=== PATIENT | female | born 2000 | race Caucasian/White ===

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

== ENCOUNTER 2022-06-01 11:58 | Emergency (ER) | payer MEDICAID, SELFPAY ==
[2022-06-01 12:00] VITALS: BP 165/90; PULSE 83; RESP 14; TEMP 36.8; O2SAT 99; BMI 43.8
--- NOTE | 2022-06-01 12:24 | RAD_ITS ---
EXAM: XR LUMBOSACRAL SPINE, 2 OR 3 VIEWS CLINICAL INDICATION: trauma, pain TECHNIQUE: Frontal and lateral views of the lumbar spine and sacrum. This report was created using [employer] report generation technology. COMPARISON: None. FINDINGS: VERTEBRAE: Normal. Preserved vertebral body height. No fracture. No spondylolisthesis. Preservation of the normal lumbar lordosis. No significant facet arthropathy. DISC SPACES: No acute findings. Disc spaces are maintained. RAD/Lumbar Spine 2 or 3 Views IMPRESSION: No evidence of lumbar spinal fracture or spondylolisthesis. Electronically Signed: Abdulaziz Hanson MD at 13:25 EDT ,
--- NOTE | 2022-06-01 12:24 | RAD_ITS ---
EXAM: XR CERVICAL SPINE, 2 OR 3 VIEWS CLINICAL INDICATION: trauma, pain TECHNIQUE: Frontal and lateral views of the cervical spine. This report was created using [employer] report generation technology. COMPARISON: XR Cervical Spine dated 03/01/2017 FINDINGS: VERTEBRAE: Loss of the normal cervical lordosis which may be due to muscle spasm or head positioning. Preserved vertebral body height. No acute fracture. No spondylolisthesis. No significant facet arthropathy. DISC SPACES: Normal. Disc spaces are maintained. SOFT TISSUES: Normal. No prevertebral soft tissue widening. LUNG APICES: Clear. MEDIASTINUM: Central airways are unremarkable. No mediastinal or hilar mass. RAD/Cerv Spine 2 or 3 Views IMPRESSION: No acute bone or joint abnormality. No interval change. Electronically Signed: Abdulaziz Hanson MD at 13:25 EDT ,
--- NOTE | 2022-06-01 12:24 | RAD_ITS ---
EXAM: XR THORACIC SPINE, 2 VIEWS CLINICAL INDICATION: trauma, pain TECHNIQUE: Frontal and lateral views of the thoracic spine. This report was created using [employer] report generation technology. COMPARISON: None. FINDINGS: VERTEBRAE: Mild vertebral body osteophytosis at T8-9. Preserved vertebral body height. No fracture. No spondylolisthesis. Preservation of the normal thoracic kyphosis. No significant facet arthropathy. DISC SPACES: Normal disc spaces. RAD/Thoracic Spine 3 Views IMPRESSION: Intact thoracic spine Electronically Signed: Abdulaziz Hanson MD at 13:26 EDT ,
[2022-06-01] MEDS: Ibuprofen 400 MG Tablet 800 MG PO (12:28)
--- NOTE | 2022-06-01 13:29 | EX.ED.DYSGE1 ---
HPI History of Present Illness Chief Complaint: Back Informant: patient Onset/Context/Timing Onset: Today Context: Sudden Onset Maximum Severity: Severe Associated Symptoms Associated Symptoms: none Narrative Narrative: Patient has pain from her neck down to her lower back. This started after she slipped on stairs. They were wet and she was on sandals with flat bottoms. She landed on her backside and slid down about 12 stairs. She denies any weakness, numbness, or other neurologic symptoms. Denies vomiting. Denies amnesia. Denies blood thinner use. Prior similar symptoms: No Recent Illness/Hospitalization: No PFSH PFSH Medical History Cholecystitis Hx of meningitis Migraine Other specified diseases of gallbladder Home Medications cyclobenzaprine 10 mg tablet 10 mg PO TID PRN Muscle Spasm #20 TABLETS 06/01/22 [Rx Last Taken Unknown] naproxen 500 mg tablet 500 mg PO BID PRN #20 tabs 06/01/22 [Rx Last Taken Unknown] Allergy/AdvReac Type Severity Reaction Status Date / Time No Known Allergies Allergy Verified 06/01/22 12:00 Family History Other Diabetes Hypertension Surgical History Hx of tympanostomy tubes Social History Smoking Status: Current every day smoker tobacco type: cigarettes and e-cigarettes alcohol intake: never ROS ROS ED Constitutional Constitutional ED: Denies chills Eyes Eyes: Denies blurry vision ENT ENT ED: Denies ear pain Cardiovascular Cardiovascular: Denies chest pain Respiratory/Chest Respiratory/Chest: Denies cough Gastrointestinal Gastrointestinal: Denies abdominal pain Genitourinary Genitourinary ED: Denies dysuria Musculoskeletal Musculoskeletal: Reports back pain and neck pain Integumentary Denies abscess Neurologic Neurologic: Denies headache(s) Psychiatric Psychiatric: Denies anxiety Endocrine Endocrinology: Denies cold intolerance Hematologic/Lymphatic Hematologic/Lymphatic: Denies easy bruising Allergic/Immunologic Allergic/Immunologic ED: Denies mouth swelling EXAM Physical Exam Const Vital Signs: 06/01/22 12:00 Temperature 98.2 F Temperature Source Temporal Pulse Rate 83 Respiratory Rate 14 Blood Pressure 165/90 H Blood Pressure Mean 115 Pulse Ox 99 Oxygen Delivery Method Room Air Positive well nourished and well developed General Appearance ED: well developed HEENT Reports moist mucous membranes Negative for trauma or tenderness Eyes PERRL and EOMs intact bilaterally Neck no lymphadenopathy, supple and no JVD Resp normal respiratory effort and clear to auscultation bilaterally Cardio regular rate and regular rhythm Back/Spine Back/Spine Narrative: Diffuse upper thoracic and lumbar tenderness to palpation Neuro oriented x3, CN's II-XII intact bilaterally and no sensory deficits noted Sensorium / Orientation: alert Motor Exam: strength 5/5 throughout Psych mental status grossly normal Skin no rashes or lesions noted MDM MDM MDM Narrative Medical decision making narrative: Patient had a mechanical fall. She has diffuse back pain. I suspect a fracture is unlikely. Did obtain x-rays which were reassuring. X-rays of the cervical spine, thoracic spine, and lumbar spine were reviewed by the radiologist and myself and showed no acute abnormalities. Patient will be treated with pain medicine and muscle relaxers. Follow-up with primary care. Discharge. Impression #1 thoracic back pain Impression #2 lumbar back pain Radiography Diagnostic Testing: Clinical Impression(s) from Imaging Studies Cervical Spine X-Ray 06/01/22 12:24 IMPRESSION: No acute bone or joint abnormality. No interval change. Electronically Signed: Abdulaziz Hanson MD at 13:25 EDT , Lumbar Spine X-Ray 06/01/22 12:24 IMPRESSION: No evidence of lumbar spinal fracture or spondylolisthesis. Electronically Signed: Abdulaziz Hanson MD at 13:25 EDT , Thoracic Spine X-Ray 06/01/22 12:24 IMPRESSION: Intact thoracic spine Electronically Signed: Abdulaziz Hanson MD at 13:26 EDT , Discharge Plan Triage Chief Complaint: Back ED Provider: Donnie Delarosa Dx/Rx/DC Orders Instructions: ED Back Contusion Prescriptions: New naproxen 500 mg tablet 500 mg PO BID PRN Qty: 20 0RF cyclobenzaprine 10 mg tablet 10 mg PO TID PRN (Reason: Muscle Spasm) Qty: 20 0RF Primary Care Provider: Care Physician,No Primary Referrals: Roseline Morgan MD [Med Staff - Valet Manager] - Disposition Disposition: Home, Self Care
[2022-06-01 13:31] VITALS: BP 145/90; PULSE 75; RESP 16; O2SAT 99
== END 2022-06-01 13:37 | disposition home or self-care (01) ==
PROVIDERS: Emergency Provider Emergency Medicine; Visit Provider Emergency Medicine
DX: S30.0XXA Contusion of lower back and pelvis, initial encounter (principal); W10.9XXA Fall (on) (from) unspecified stairs and steps, initial encounter; F17.210 Nicotine dependence, cigarettes, uncomplicated
CPT/HCPCS: 72040; 72072; 72100; 99283

== ENCOUNTER → 2023-02-25 | Outpatient (CLI) | payer MEDICAID, SELFPAY ==
[2023-02-25 16:25] LABS: Free T3 2.9 pg/mL (2.18-3.98); T4 Free Direct 0.83 ng/dL (0.76-1.46); Thyroid Stim Hormone (TSH) 4.04 uIU/mL (0.358-3.74)
[2023-02-27 15:08] LABS: Thyroglobulin Antibody 9.8 IU/mL (0.0-0.9); Thyroid Peroxidase AB 253 IU/mL (0-34)
== END | disposition home or self-care (01) ==
LOC: MFPLAB 11:33
PROVIDERS: Visit Provider Family Medicine
DX: R79.89 Other specified abnormal findings of blood chemistry (principal)
CPT/HCPCS: 36415; 84439; 84443; 84481; 86376; 86800

== ENCOUNTER 2023-04-17 22:30 | Emergency (ER) | payer MEDICAID, SELFPAY ==
--- NOTE | 2023-04-17 | RAD_ITS ---
EXAM: XR LEFT TOES, 2 OR MORE VIEWS CLINICAL INDICATION: toe pain TECHNIQUE: Frontal, lateral and oblique views of the toes of the left foot. COMPARISON: No relevant prior studies available. FINDINGS: BONES/JOINTS: Unremarkable. No acute fracture. No dislocation. SOFT TISSUES: Unremarkable. No radiopaque foreign body. RAD/Toe(s) Min 2 Views IMPRESSION: Negative left toe x-rays. Electronically Signed: Enrique Flowers MD at 0:21 EDT ,
[2023-04-17 22:31] VITALS: BP 164/101; PULSE 102; RESP 18; TEMP 36.1; O2SAT 100; BMI 46.5
--- NOTE | 2023-04-18 00:15 | EX.ED.DYSGE1 ---
HPI History of Present Illness Chief Complaint: Lower Extremity Injury [facility] Medical History Cholecystitis Hx of meningitis Migraine Other specified diseases of gallbladder Home Medications levothyroxine 50 mcg tablet 50 mcg PO DAILY 04/17/23 [History Last Taken Unknown] Allergy/AdvReac Type Severity Reaction Status Date / Time prednisone Allergy Mild Hives Verified 04/17/23 22:31 Family History Other Diabetes Hypertension Surgical History Hx of tympanostomy tubes Social History Smoking Status: Current every day smoker tobacco type: cigarettes and e-cigarettes alcohol intake: never EXAM Physical Exam Const Vital Signs: 04/17/23 22:31 Temperature 97 F L Temperature Source Temporal Pulse Rate 102 H Respiratory Rate 18 Blood Pressure 164/101 H Blood Pressure Mean 122 Pulse Ox 100 MDM MDM MDM Narrative Medical decision making narrative: HISTORY OF PRESENT ILLNESS: 23-year-old female here with left great toe pain. States she injured her toe prior to arrival. REVIEW OF SYSTEMS: Pertinent positives: Toe pain Pertinent negatives: Numbness, tingling loss of sensation PHYSICAL EXAM: Nursing triage notes reviewed, Vital signs reviewed Constitutional: please see mdm Extremities: No edema Neuro: Intact sensation L1-S1 dermatomal distributions. Intact 5/5 strength in hip flexion (T12-L3). Knee extension (L2-L4). Ankle dorsiflexion (L4-L5). Ankle plantar flexion (S1). Great toe extension (L5). 2+ patellar and Achilles DTRs. Skin: Small abrasion noted to the lateral surface of the left toe. Redness over the toe but no warmth no white-yellow discharge is clear serosanguineous fluid draining from the left toe. No lacerations noted. MEDICAL DECISION MAKING: Chief Complaint: Toe pain External records reviewed: No recent advanced imaging of the involved extremity Factors affecting care:. Hypothyroid ALL IMAGES (IF OBTAINED) HAVE BEEN PERSONALLY REVIEWED AND INTERPRETED BY MYSELF. MDM Narrative: Patient was hemodynamically stable, afebrile, nontoxic-appearing. I considered the following differential diagnosis: Toe fracture, dislocation, toe contusion I obtained an x-ray. X-ray was interpreted myself. X-ray showed no evidence of obvious fracture dislocation. Patient is likely suffering from a toe contusion and as such is appropriate discharge home with ibuprofen and Tylenol instructions, RICE instructions, PCP follow-up instructions. The patient and/or family, caregivers express understanding. The patient and/or family, caregivers agrees with the plan. Shared decision making: I will have a discussion with the patient and or visitors regarding risk/benefits of further testing or admission. They will be made aware of of the risk/benefits inherent in this decision they will be given the opportunity to voice understanding. Total critical care time today provided was at least 0 minutes. This excludes separately billable procedures. Critical care time (if documented) is secondary to the patient having high probability of clinically significant/life threatening deterioration in the patient's condition which required my urgent intervention. Radiography Chest X-Ray - ED: Read by ED Physician Diagnostic Testing: Clinical Impression(s) from Imaging Studies Toe X-Ray 04/17/23 00:00 IMPRESSION: Negative left toe x-rays. Electronically Signed: Enrique Flowers MD at 0:21 EDT , X-ray of the left toe shows no evidence of fracture dislocation Discharge Plan Triage Chief Complaint: Lower Extremity Injury ED Provider: Arnaldo Haq Dx/Rx/DC Orders Clinical Impression: Contusion of toe Instructions: Bone Contusion Prescriptions: No Action levothyroxine 50 mcg tablet 50 mcg PO DAILY Patient Comments: take 1 tablet by mouth once daily Primary Care Provider: Marli Avina Referrals: Care Physician,No Primary [Non-Staff] - Activity Restrictions/Additional Instructions: Thank you for trusting us with your care today! Please take Tylenol (2 pills, 650 mg), ibuprofen (2 pills, 400 mg) every 6 hours as needed for pain and fever control. Please return to the emergency department if your symptoms change or worsen. Please return if you notice increasing pain, redness, swelling, white-yellow discharge in 3 to 5 days from today. Please use elevation, compression, ice to relieve symptoms as well. Please follow with your primary care physician for further outpatient evaluation and management. Disposition Disposition: Home, Self Care Discharge Date/Time: 04/18/23 01:27
[2023-04-18] MEDS: Diphth,Pertuss(Acell),Tet Vac 0.5 ML Vial IM (01:18)
== END 2023-04-18 01:27 | disposition home or self-care (01) ==
PROVIDERS: Emergency Provider Emergency Medicine; PCP Family Medicine; Visit Provider Emergency Medicine
DX: S90.112A Contusion of left great toe without damage to nail, initial encounter (principal); E03.9 Hypothyroidism, unspecified; F17.210 Nicotine dependence, cigarettes, uncomplicated; F17.290 Nicotine dependence, other tobacco product, uncomplicated; Z79.899 Other long term (current) drug therapy; X58.XXXA Exposure to other specified factors, initial encounter; Z23 Encounter for immunization
CPT/HCPCS: 73660; 90471; 90715; 99282

== ENCOUNTER 2023-09-23 22:49 | Emergency (ER) | payer OTHER, SELFPAY ==
--- NOTE | 2023-09-23 00:07 | RAD_ITS ---
INDICATION: pain EXAMINATION/TECHNIQUE: X-RAY - LEFT XR Wrist Min 3 Views 3 VIEWS COMPARISON: None. FINDINGS: SOFT TISSUES: No soft tissue swelling or gas. No radiopaque foreign body. BONES/JOINTS: No acute fracture. Joint spaces anatomically aligned. RAD/Wrist min 3 Views IMPRESSION: No acute bony injury. Electronically Signed: Gume Vang MD at 0:30 EST ,
[2023-09-23 22:50] VITALS: BP 183/93; PULSE 104; RESP 20; TEMP 36.8; O2SAT 100; BMI 50.1
--- OUTSIDE RECORDS SUMMARY | 2023-09-23 23:22 | XMS RPT_ITS | CCD ---
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 reduced with medications. - Follow-up with your PCP in 3-5 days if symptoms have not improved or sooner if symptoms worsen - Discussed red flags and need for immediate medical evaluation if any occur. - Discussed supportive care treatment with fluids, rest and analgesia. - Discussed expected course of illness Marilia Membreno APRN.[facility] 02-24-2023 Instructions Mariliaannette Membreno APRN.CNP - 02/24/2023 11:14 AM EDT ASSESSMENT/PLAN: 1. Torticollis - ICD9: 723.5, ICD10: M43.6 - CYCLOBENZAPRINE 10 MG TABLET - IBUPROFEN 600 MG TABLET - gentle range of motion exercises to neck once pain is reduced with medications. - Follow-up with your PCP in 3-5 days if symptoms have not improved or sooner if symptoms worsen - Discussed red flags and need for immediate medical evaluation if any occur. - Discussed supportive care treatment with fluids, rest and analgesia. - Discussed expected course of illness Marilia Membreno APRN.ALISA documented in this encounter [facility] 02-24-2023 History of Present illness Narrative Formatting of this note is different fro m the original. Images from the original note were not included. Subjective Neck Pain Pertinent negatives include no fever or headaches. Dre Childress is a 23 year old female who presents with right neck and shoulder pain for the past 3 hours. She woke up with a sore neck and pain radiates to her shoulder. She rates her pain 7-8/10. Has limited range of motion of her neck due to stiffness. Denies any injury. She did not take any medication for pain today, it totally slipped my mind . Review of Systems Constitutional: Negative for chills and fever. HENT: Negative for congestion, ear pain and sore throat. Respiratory: Negative for cough. Cardiovascular: Negative. Musculoskeletal: Positive for neck pain. Negative for back pain, falls and joint pain. Skin: Negative for itching and rash. Neurological: Negative for dizziness and headaches. BP 142/82 Pulse 94 Temp 37.3 C (99.1 F) Resp 16 Wt 122 kg (269 lb) LMP 08/23/2018 SpO2 98% PAST MEDICAL HISTORY Diagnosis Date Eczema NEGATIVE MEDICAL HISTORY Normal color vision PAST SURGICAL HISTORY Procedure Laterality Date MYRINGOTOMY ASPIR&/EUSTACHIAN TUBE NFLTJ ANES 2009 Myringotomy/tubes x 2 ALLERGIES Cats and Prednisone MEDICATIONS fluticasone (FLONASE) 50 mcg/actuation nasal spray Use 2 Sprays in each nostril once daily. Rinse mouth after use. Ferrous Sulfate (SLOW FE) 142 mg (45 mg iron) TbER Take 1 tablet by mouth once daily. (Patient not taking: Reported on 01/01/2023) medroxyPROGESTERone (PROVERA) 10 mg tablet Take one tab once a day for 10 days if no menstrual period in 3 months (Patient not taking: Reported on 01/01/2023) multivitamin tablet Take 1 tablet by mouth once daily. (Patient not taking: Reported on 01/01/2023) chlorhexidine (HIBICLENS) 4 % external liquid Apply 1 application to affected area once daily as needed (use at affected area). (Patient not taking: Reported on 01/01/2023) FAMILY HISTORY Problem Relation Age of Onset Hypertension Mother other (apnea) Mother Hypertension Father Hypertension Maternal Grandmother Diabetes Maternal Grandfather Hypertension Maternal Grandfather other (apnea) Maternal Grandfather Diabetes Paternal Grandfather Hypertension Paternal Grandfather Cancer Paternal Grandfather GGF - bone cancer other (Other) Paternal Grandfather GGF - Parkinsons Social History Tobacco Use Smoking status: Never Passive exposure: Yes Smokeless tobacco: Never Tobacco comments: Father smokes - sees him every other weekend Substance Use Topics Alcohol use: No Drug use: No Objective Physical Exam Vitals and nursing note reviewed. Constitutional: General: She is not in acute distress. Appearance: Normal appearance. She is obese. She is not ill-appearing. HENT: Right Ear: Tympanic membrane, ear canal and external ear normal. Left Ear: Tympanic membrane, ear canal and external ear normal. Nose: Nose normal. Mouth/Throat: Mouth: Mucous membranes are moist. Pharynx: Uvula midline. No oropharyngeal exudate or posterior oropharyngeal erythema. Neck: Cardiovascular: Rate and Rhythm: Normal rate. Pulmonary: Effort: Pulmonary effort is normal. Musculoskeletal: Cervical back: Neck supple. No erythema, signs of trauma or crepitus. Pain with movement and muscular tenderness present. No spinous process tenderness. Decreased range of motion. Lymphadenopathy: Cervical: No cervical adenopathy. Skin: General: Skin is warm and dry. Findings: No erythema or rash. Neurological: Mental Status: She is alert. ASSESSMENT/PLAN: 1. Torticollis - ICD9: 723.5, ICD10: M43.6 - CYCLOBENZAPRINE 10 MG TABLET - IBUPROFEN 600 MG TABLET - gentle range of motion exercises to neck once pain is reduced with medications. - Follow-up with your PCP in 3-5 days if symptoms have not improved or sooner if symptoms worsen - Discussed red flags and need for immediate medical evaluation if any occur. - Discussed supportive care treatment with fluids, rest and analgesia. - Discussed expected course of illness Marilia Membreno APRN.CNP documented in this encounter [facility] 01-27-2023 Note Patient Outreach (RE FPHY) DRE CHILDRESS ([id number]) 2 F Date Time Provider Department 01/27/23 NO PCP (HISTORCAL) REFPHY During your visit today, we recorded the following information about you: Nava Reyes 01/27/2023 9:58 AM Signed POPULATION HEALTH NAVIGATION OUTREACH Action/ RP Outreach: LVM for Patient to call back and schedule EVELYNE Consult for Acute left ankle pain [M25.572]. [phone]. Any agent can assist. Patient Identified by Name and : YES, via MyChart Outreach Outcome/Action Unable to reach patient: Left message Did you use a PCP flex slot to schedule this appointment? No Reason for Outreach Care Gap or Scheduling/Wellness visits P[facility]: [facility] [place] [facility] / Plan: [facility] MEDICAID / Product Type: Medicaid / Care Gap Reviewed:: ORQ Reminder: Reminder note to check Health Maintenance for items below Health Maintenance items due: MENINGOCOCCAL B: Consider based on risk(1 of 2 - Risk Bexsero 2-dose series) Never done GC (GONORRHEA) SCREENING (18-24) Never done HEPATITIS C SCREENING Never done HIV SCREENING Never done CHLAMYDIA SCREENING (18-24) Never done COVID-19 VACCINE(3 - Booster for Pfizer series) due on 05/20/2021 PAP TESTING Never done DEPRESSION ASSESSMENT Never done DTAP,TDAP,TD(7 - Td or Tdap) due on 10/28/2022 Navigation Signature: Nava Reyes January 27, 2023 9:57 AM Allergies As of Date: 01/27/2023 Noted Allergy Reaction CATS 10/28/2012 14 - Other: See Comments Comments: Watery eyes PREDNISONE 01/14/2023 2 - Rash 4 - Hives Date Reviewed: 01/09/2023 Reviewed by: Mabel Kenny MA - Fully Assessed Prescriptions as of 01/27/2023 - fluticasone (FLONASE) 50 mcg/actuation nasal spray Use 2 Sprays in each nostril once daily. Rinse mouth after use. - Ferrous Sulfate (SLOW FE) 142 mg (45 mg iron) TbER Take 1 tablet by mouth once daily. - medroxyPROGESTERone (PROVERA) 10 mg tablet Take one tab once a day for 10 days if no menstrual period in 3 months - multivitamin tablet Take 1 tablet by mouth once daily. - chlorhexidine (HIBICLENS) 4 % external liquid Apply 1 application to affected area once daily as needed (use at affected area). Problem List As Of Date 01/27/2023 Noted Resolved Patellar subluxation [S83.003A] 07/16/2015 03/30/2017 Obesity, Class III, BMI >= 40 (morbid obesity) *06/23/2017 Hidradenitis suppurativa [L73.2] 08/07/2017 Hyperlipidemia [E78.5] 08/07/2017 Other acne [L70.8] 08/10/2018 Irregular periods [N92.6] 08/10/2018 Elevated TSH [R79.89] 08/10/2018 Anemia [D64.9] 08/16/2018 Encounter Status:Closed by NAVA REYES on 01/27/23 [facility] 01-27-2023 Note HNO ID: [id number] Author: Nava Reyes Service: ? Author Type: ? Type: Progress Notes Filed: 01/27/2023 9:58 AM Note Text: POPULATION HEALTH NAVIGATION OUTREACH Action/MALKAI Outreach: LVM for Patient to call back and schedule EVELYNE Consult for Acute left ankle pain [M25.572]. [phone]. Any agent can assist. Patient Identified by Name and : YES, via [facility] Outreach Outcome/Action Unable to reach patient: Left message Did you use a PCP flex slot to schedule this appointment? No Reason for Outreach Care Gap or Scheduling/Wellness visits Payer: Payor: [facility] MEDICAID / Plan: [facility] MEDICAID / Product Type: Medicaid / Care Gap Reviewed:: ORQ Reminder: Reminder note to check Health Maintenance for items below Health Maintenance items due: MENINGOCOCCAL B: Consider based on risk(1 of 2 - Risk Bexsero 2-dose series) Never done GC (GONORRHEA) SCREENING (18-24) Never done HEPATITIS C SCREENING Never done HIV SCREENING Never done CHLAMYDIA SCREENING (18-24) Never done COVID-19 VACCINE(3 - Booster for Pfizer series) due on 05/20/2021 PAP TESTING Never done DEPRESSION ASSESSMENT Never done DTAP,TDAP,TD(7 - Td or Tdap) due on 10/28/2022 Navigation Signature: Nava eRyes January 27, 2023 9:57 AM [facility] 01-27-2023 History of Present illness Narrative Formatting of this note is different fro m the original. POPULATION HEALTH NAVIGATION OUTREACH Action/FYI RP Outreach: LVM for Patient to call back and schedule EVELYNE Consult for Acute left ankle pain [[id number]]. [phone]. Any agent can assist. Patient Identified by Name and : YES, via [facility] Outreach Outcome/Action Unable to reach patient: Left message Did you use a PCP flex slot to schedule this appointment? No Reason for Outreach Care Gap or Scheduling/Wellness visits Payer: Payor: [facility] MEDICAID / Plan: [employer] MEDICAID / Product Type: Medicaid / Care Gap Reviewed:: ORQ Reminder: Reminder note to check Health Maintenance for items below Health Maintenance items due: MENINGOCOCCAL B: Consider based on risk(1 of 2 - Risk Bexsero 2-dose series) Never done GC (GONORRHEA) SCREENING (18-24) Never done HEPATITIS C SCREENING Never done HIV SCREENING Never done CHLAMYDIA SCREENING (18-24) Never done COVID-19 VACCINE(3 - Booster for Pfizer series) due on 05/20/2021 PAP TESTING Never done DEPRESSION ASSESSMENT Never done DTAP,TDAP,TD(7 - Td or Tdap) due on 10/28/2022 Navigation Signature: Nava Reyes January 27, 2023 9:57 AM documented in this encounter [facility] 01-22-2023 Note HNO ID: [id number] Author: Nava Reyes Service: ? Author Type: ? Type: Progress Notes Filed: 01/22/2023 3:22 PM Note Text: POPULATION HEALTH NAVIGATION OUTREACH Action/VAUGHN RP Outreach: LVM for Patient to call back and schedule EVELYNE Consult for Acute left ankle pain [M25.572]. [phone]. Any agent can assist. Patient Identified by Name and : YES, via [facility] Outreach Outcome/Action Unable to reach patient: Left message Did you use a PCP flex slot to schedule this appointment? No Reason for Outreach Care Gap or Scheduling/Wellness visits Payer: [facility] [place] [facility] / Plan: [facility] / Product Type: Medicaid / Care Gap Reviewed:: ORQ Reminder: Reminder note to check Health Maintenance for items below Health Maintenance items due: MENINGOCOCCAL B: Consider based on risk(1 of 2 - Risk Bexsero 2-dose series) Never done GC (GONORRHEA) SCREENING (18-24) Never done HEPATITIS C SCREENING Never done HIV SCREENING Never done CHLAMYDIA SCREENING (18-24) Never done COVID-19 VACCINE(3 - Booster for Pfizer series) due on 05/20/2021 PAP TESTING Never done DEPRESSION ASSESSMENT Never done DTAP,TDAP,TD(7 - Td or Tdap) due on 10/28/2022 Navigation Signature: Nava Reyes January 22, 2023 3:21 PM [facility] 01-22-2023 Note Patient Outreach (RE FPHY) DRE CHILDRESS ([id number]) 2 F Date Time Provider Department 01/22/23 NO PCP (HISTORCAL) REFPHY During your visit today, we recorded the following information about you: Nava Reyes 01/22/2023 3:22 PM Signed POPULATION HEALTH NAVIGATION OUTREACH Action/ RP Outreach: LVM for Patient to call back and schedule EVELYNE Consult for Acute left ankle pain [M25.572]. [phone]. Any agent can assist. Patient Identified by Name and : YES, via MyChart Outreach Outcome/Action Unable to reach patient: Left message Did you use a PCP flex slot to schedule this appointment? No Reason for Outreach Care Gap or Scheduling/Wellness visits Payer: Payor: [facility] MEDICAID / Plan: [facility] / Product Type: Medicaid / Care Gap Reviewed:: ORQ Reminder: Reminder note to check Health Maintenance for items below Health Maintenance items due: MENINGOCOCCAL B: Consider based on risk(1 of 2 - Risk Bexsero 2-dose series) Never done GC (GONORRHEA) SCREENING (18-24) Never done HEPATITIS C SCREENING Never done HIV SCREENING Never done CHLAMYDIA SCREENING (18-24) Never done COVID-19 VACCINE(3 - Booster for Pfizer series) due on 05/20/2021 PAP TESTING Never done DEPRESSION ASSESSMENT Never done DTAP,TDAP,TD(7 - Td or Tdap) due on 10/28/2022 Navigation Signature: Nava Reyes January 22, 2023 3:21 PM Allergies As of Date: 01/22/2023 Noted Allergy Reaction CATS 10/28/2012 14 - Other: See Comments Comments: Watery eyes PREDNISONE 01/14/2023 2 - Rash 4 - Hives Date Reviewed: 01/09/2023 Reviewed by: Mabel Kenny MA - Fully Assessed Prescriptions as of 01/22/2023 - fluticasone (FLONASE) 50 mcg/actuation nasal spray Use 2 Sprays in each nostril once daily. Rinse mouth after use. - Ferrous Sulfate (SLOW FE) 142 mg (45 mg iron) TbER Take 1 tablet by mouth once daily. - medroxyPROGESTERone (PROVERA) 10 mg tablet Take one tab once a day for 10 days if no menstrual period in 3 months - multivitamin tablet Take 1 tablet by mouth once daily. - chlorhexidine (HIBICLENS) 4 % external liquid Apply 1 application to affected area once daily as needed (use at affected area). Problem List As Of Date 01/22/2023 Noted Resolved Patellar subluxation [S83.003A] 07/16/2015 03/30/2017 Obesity, Class III, BMI >= 40 (morbid obesity) *06/23/2017 Hidradenitis suppurativa [L73.2] 08/07/2017 Hyperlipidemia [E78.5] 08/07/2017 Other acne [L70.8] 08/10/2018 Irregular periods [N92.6] 08/10/2018 Elevated TSH [R79.89] 08/10/2018 Anemia [D64.9] 08/16/2018 Encounter Status:Closed by NAVA REYES on 01/22/23 [facility] 01-14-2023 Miscellaneous Notes Formatting of this note might be differe nt from the original. Pt was notified of the results. Pt verbalized understanding. Jade Nunez MA She can try naproxen otc for pain and follow up with podiatry if not improving. Pt was seen 01/09/23 for ankle pain & was put on prednisone 20mg. Pt reports she started having a rash & hives while taking med, hives & rash were all over her body & face. Pt stopped taking pred yest & states the rash & hives are almost gone. This med was added as an allergy in her allergy list. Pt reports her ankle is still the same as far as swelling & pain. Pt states she went to [employer] over the weekend & was walking a lot. She also hit her foot on the spigot in her bathtub & it left a bruise. Pt states she is not worried about the swelling & pain & states she has a referral to podiatry if it continues. Desiree Mobley LPN documented in this encounter [facility] 01-09-2023 Note HNO ID: [id number] Author: Nany Torres PA-C Service: ? Author Type: Physician Behavioral Modification Assistant Type: Progress Notes Filed: 01/09/2023 4:42 PM Note Text: This note was created using Webstep[employer]. Subjective Dre Childress is a 22 year old female. HPI Presents with left foot pain for 2 days. Denies any injury that she can think of. 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 Has noted some swelling. No calf pain or swelling. Pain is worsened with weightbearing. She has been trying Tylenol [id number]. Review of Systems Constitutional: Negative. HENT: Negative. Respiratory: Negative. Cardiovascular: Negative. Gastrointestinal: Negative. Musculoskeletal: Left foot and ankle pain All other systems reviewed and are negative. PAST MEDICAL HISTORY Diagnosis Date Eczema NEGATIVE MEDICAL HISTORY Normal color vision Current Outpatient Medications Medication Sig Dispense Refill fluticasone (FLONASE) 50 mcg/actuation nasal spray Use 2 Sprays in each nostril once daily. Rinse mouth after use. 9.9 mL 0 predniSONE (DELTASONE) 20 mg tablet Take 2 tablets by mouth once daily for 5 days. 10 tablet 0 Ferrous Sulfate (SLOW FE) 142 mg (45 mg iron) TbER Take 1 tablet by mouth once daily. (Patient not taking: Reported on 01/01/2023) 31 tablet 3 medroxyPROGESTERone (PROVERA) 10 mg tablet Take one tab once a day for 10 days if no menstrual period in 3 months (Patient not taking: Reported on 01/01/2023) 10 tablet 3 multivitamin tablet Take 1 tablet by mouth once daily. (Patient not taking: Reported on 01/01/2023) chlorhexidine (HIBICLENS) 4 % external liquid Apply 1 application to affected area once daily as needed (use at affected area). (Patient not taking: Reported on 01/01/2023) 473 mL 1 No current facility-administered medications for this visit. PAST SURGICAL HISTORY Procedure Laterality Date MYRINGOTOMY ASPIRAND/EUSTACHIAN TUBE NFLTJ ANES 2009 Myringotomy/tubes x 2 FAMILY HISTORY Problem Relation Age of Onset Hypertension Mother other (apnea) Mother Hypertension Father Hypertension Maternal Grandmother Diabetes Maternal Grandfather Hypertension Maternal Grandfather other (apnea) Maternal Grandfather Diabetes Paternal Grandfather Hypertension Paternal Grandfather Cancer Paternal Grandfather GGF - bone cancer other (Other) Paternal Grandfather GGF - Parkinsons Social History Tobacco Use Smoking status: Never Passive exposure: Yes Smokeless tobacco: Never Tobacco comments: Father smokes - sees him every other weekend Substance Use Topics Alcohol use: No Drug use: No Objective BP 130/80 Pulse 78 Temp 36.7 ?C (98 ?F) Resp 18 Wt 117.5 kg (259 lb) LMP 08/23/2018 SpO2 97% Physical Exam Vitals reviewed. Constitutional: Appearance: Normal appearance. HENT: Head: Normocephalic and atraumatic. Musculoskeletal: Comments: Exam of the left ankle reveals mild swelling to the lateral malleolus and anterior ankle area. She is tender on palpation here. Some pain with dorsiflexion and plantarflexion. No tenderness of the metatarsals of the foot. No medial malleoli or tenderness. Pedal pulses 2+. No erythema or warmth. Skin: General: Skin is warm and dry. Neurological: Mental Status: She is alert. Assessment and Plan ASSESSMENT/PLAN: 1. Acute left ankle pain - ICD9: 719.47, ICD10: M25.572 X-ray showed no acute findings. Likely tendinitis or overuse injury. Recommended rest, ice, Tylenol. Patient preferred to try prednisone rather than Aleve. Will trial 5-day course. Mervin wrap applied here. Follow-up with podiatry if not improving. - XR FOOT GENERAL 3V AP/LAT/OBL LEFT - XR ANKLE GENERAL 3V AP/LAT/OBL LEFT Nany Torres PA-C [facility] 01-09-2023 Note HNO ID: [id number] Author: Neda Lopes RT(R) Service: Nuclear Medicine Author Type: Technologist Type: Progress Notes Filed: 01/09/2023 3:05 PM Note Text: Radiology Service Progress Note PATIENT NAME: Dre Childress DATE OF SERVICE: January 09, 2023 TIME: 2:52 PM PATIENT IDENTITY VERIFICATION COMPLETED USING TWO (2) IDENTIFIERS: Name and Date of confirmed by patient verbally. FALL SCREENING: Has the patient had 2 falls in the last year or 1 fall with injury or currently using an Ambulatory Assistive Device (Walker, Cane, Wheelchair, Crutches, etc.)? No PATIENT GENDER DATA: Female. status: : No status: NO. PATIENT RELEVANT IMPLANT DATA REVIEWED: Not Applicable RADIOLOGY DEPARTMENT: General X-ray: Exam(s) Completed: Lower Extremity X-Ray(s): Ankle, Left and Wt. Bearing and Foot, Left and Wt. Bearing PERIPHERAL IV DATA: Not applicable SIGNED BY: RT Maida(R) January 09, 2023 2:52 PM [facility] 01-09-2023 History of Present illness Narrative Formatting of this note is different fro m the original. This note was created using [employer]. Subjective Dre Childress is a 22 year old female. HPI Presents with left foot pain for 2 days. Denies any injury that she can think of. 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 Has noted some swelling. No calf pain or swelling. Pain is worsened with weightbearing. She has been trying Tylenol [id number]. Review of Systems Constitutional: Negative. HENT: Negative. Respiratory: Negative. Cardiovascular: Negative. Gastrointestinal: Negative. Musculoskeletal: Left foot and ankle pain All other systems reviewed and are negative. PAST MEDICAL HISTORY Diagnosis Date Eczema NEGATIVE MEDICAL HISTORY Normal color vision Current Outpatient Medications Medication Sig Dispense Refill fluticasone (FLONASE) 50 mcg/actuation nasal spray Use 2 Sprays in each nostril once daily. Rinse mouth after use. 9.9 mL 0 predniSONE (DELTASONE) 20 mg tablet Take 2 tablets by mouth once daily for 5 days. 10 tablet 0 Ferrous Sulfate (SLOW FE) 142 mg (45 mg iron) TbER Take 1 tablet by mouth once daily. (Patient not taking: Reported on 01/01/2023) 31 tablet 3 medroxyPROGESTERone (PROVERA) 10 mg tablet Take one tab once a day for 10 days if no menstrual period in 3 months (Patient not taking: Reported on 01/01/2023) 10 tablet 3 multivitamin tablet Take 1 tablet by mouth once daily. (Patient not taking: Reported on 01/01/2023) chlorhexidine (HIBICLENS) 4 % external liquid Apply 1 application to affected area once daily as needed (use at affected area). (Patient not taking: Reported on 01/01/2023) 473 mL 1 No current facility-administered medications for this visit. PAST SURGICAL HISTORY Procedure Laterality Date MYRINGOTOMY ASPIR&/EUSTACHIAN TUBE NFLTJ ANES 2009 Myringotomy/tubes x 2 FAMILY HISTORY Problem Relation Age of Onset Hypertension Mother other (apnea) Mother Hypertension Father Hypertension Maternal Grandmother Diabetes Maternal Grandfather Hypertension Maternal Grandfather other (apnea) Maternal Grandfather Diabetes Paternal Grandfather Hypertension Paternal Grandfather Cancer Paternal Grandfather GGF - bone cancer other (Other) Paternal Grandfather GGF - Parkinsons Social History Tobacco Use Smoking status: Never Passive exposure: Yes Smokeless tobacco: Never Tobacco comments: Father smokes - sees him every other weekend Substance Use Topics Alcohol use: No Drug use: No Objective BP 130/80 Pulse 78 Temp 36.7 C (98 F) Resp 18 Wt 117.5 kg (259 lb) LMP 08/23/2018 SpO2 97% Physical Exam Vitals reviewed. Constitutional: Appearance: Normal appearance. HENT: Head: Normocephalic and atraumatic. Musculoskeletal: Comments: Exam of the left ankle reveals mild swelling to the lateral malleolus and anterior ankle area. She is tender on palpation here. Some pain with dorsiflexion and plantarflexion. No tenderness of the metatarsals of the foot. No medial malleoli or tenderness. Pedal pulses 2+. No erythema or warmth. Skin: General: Skin is warm and dry. Neurological: Mental Status: She is alert. Assessment and Plan ASSESSMENT/PLAN: 1. Acute left ankle pain - ICD9: 719.47, ICD10: M25.572 X-ray showed no acute findings. Likely tendinitis or overuse injury. Recommended rest, ice, Tylenol. Patient preferred to try prednisone rather than Aleve. Will trial 5-day course. Mervin wrap applied here. Follow-up with podiatry if not improving. - XR FOOT GENERAL 3V AP/LAT/OBL LEFT - XR ANKLE GENERAL 3V AP/LAT/OBL LEFT Nany Torres PA-C documented in this encounter [facility] 01-09-2023 Miscellaneous Notes Formatting of this note might be differe nt from the original. I called and discussed ankle and foot x-rays with patient. documented in this encounter [facility] 01-02-2023 Miscellaneous Notes Formatting of this note might be differe nt from the original. Patient returned call and went over results, notes from express care provider with understanding. Phone call placed brief message to contact a nurse to review results. Radha Garvey LPN Please notify of negative covid test. Continue comfort measures for symptoms as you would for a cold. Any worsening symptoms follow up with PCP or ER. Mary Ordoñez APRN.ALISA documented in this encounter [facility] 01-01-2023 Note HNO ID: [id number] Author: Cheyenne Zhou APRN.ALISA Service: ? Author Type: Nurse Practitioner Type: Progress Notes Filed: 01/01/2023 6:55 PM Note Text: Subjective HPI Dre presents today with 3 days hx of sore throat and head congestion, she states several family members also feeling similar. She is eating and drinking, she states her right ear feels strange . She has not had a fever. She is not using any otc meds at this time Review of Systems HENT: Positive for congestion, ear pain and sore throat. Objective Physical Exam Vitals and nursing note reviewed. Constitutional: Appearance: Normal appearance. HENT: Head: Normocephalic. Right Ear: Tympanic membrane, ear canal and external ear normal. Left Ear: Tympanic membrane, ear canal and external ear normal. Nose: Congestion present. Mouth/Throat: Mouth: Mucous membranes are dry. Pharynx: Oropharyngeal exudate and posterior oropharyngeal erythema present. Eyes: Extraocular Movements: Extraocular movements intact. Conjunctiva/sclera: Conjunctivae normal. Pupils: Pupils are equal, round, and reactive to light. Cardiovascular: Rate and Rhythm: Normal rate and regular rhythm. Pulses: Normal pulses. Heart sounds: No murmur heard. Pulmonary: Effort: Pulmonary effort is normal. Breath sounds: Normal breath sounds. Abdominal: General: Abdomen is flat. Palpations: Abdomen is soft. Musculoskeletal: General: Normal range of motion. Cervical back: Normal range of motion. Skin: General: Skin is warm and dry. Capillary Refill: Capillary refill takes less than 2 seconds. Neurological: General: No focal deficit present. Mental Status: She is alert and oriented to person, place, and time. Psychiatric: Mood and Affect: Mood normal. ASSESSMENT/PLAN: 1. Sore throat - ICD9: 462, ICD10: J02.9 (primary diagnosis) - Discussed supportive care treatment with fluids, rest and analgesia. - Contagious dz precautions discussed- including considered contagious until on antibiotics for 24 hours - COVID WITH FLUA+B, ROUTINE - RAPID STREP TEST B/O 2. Sorethroat - ICD9: 462, ICD10: J02.9 - Rapid Strep negative in the office today Increase fluids Cheyenne Zhou APRN.[facility] 05-31-2021 History of Present illness Narrative DATE OF SERVICE: 05/30/2021 REASON OF VISIT: Jaw pain. HISTORY OF PRESENT ILLNESS: This is a 21-year-old female presenting with jaw pain on the left lower jaw for the last 1 week. She also has some coughing and sometime white phlegm. Patient stated that she had a Telehealth with another [facility] and was treated with antibiotic, amoxicillin, for 1 week for possible gum flap infection from erupting wisdom teeth. She already completed antibiotics 2 to 3 days ago. She stated that the pain is still persistent. Now sometimes she gets abdominal discomfort after eating and the cough is not very significant. No fever or chills. No other problem at this visit. REVIEW OF SYSTEMS: Review of other systems normal. ALLERGIES: NKA. MEDICATIONS: 1. Tylenol. 2. Naproxen. 3. Ibuprofen. PHYSICAL EXAMINATION: She is awake, not in distress, no dyspnea. She does not look ill. Temperature 98.2, blood pressure 130/82, pulse 68, respirations 18, pulse oximetry 98% on room air. Pain score 6/10. Examination of the oral cavity did not show any acute changes or lesions. I looked at her lower jaw on the left side. There was no obvious swelling of the gum, no carious tooth or decayed tooth. Finger palpation did not find any swelling or mass. There was no sign of major infection or any abscess or any mass. There was no facial swelling. Chest clear to auscultate. Heart regular rate and rhythm. Abdomen was benign. Overall, the exam was quite normal. ASSESSMENT: Left lower jaw pain, possible wisdom tooth eruption. PLAN: Clinical findings were discussed with the patient in detail. I explained to her that I do not see any reason for more antibiotics. In my opinion, this should be tooth-related symptoms for which she should see a dentist. I want her to call dentist and get an appointment to get further evaluation of her jaw pain. I want her to use ice pack, do mouthwash. Continue [id number] pain medicine as needed, although I explained to her that I did not see any significant pathology right now. Patient understands and agrees. Her questions were answered to her satisfaction. Sheba Zhang MD PP/[id number] [facility] File#: [id number] END OF DOCUMENT / CHANGE LOG FOLLOWS Last Edited By Elec. Signed By Sheba Zhang MD #PAWPR Sheba Zhang MD #PAWPR on 06/06/2021 15:49 ET on 06/06/2021 15:49 ET Revision Number - 2 ^^^ Verified/Reviewed by 06/06/21 1549 [facility] PATIENT NAME: DRE CHILDRESS [facility] Dr. Salcido MEDICAL REC #: [id number] [place] [address] [facility] REPORT STATCARE PHYSICIAN documented in this encounter [facility] 04-03-2021 History of Present illness Narrative DATE OF SERVICE: 04/03/2021 REASON OF VISIT: Numbness of the right-side eye. HISTORY OF PRESENT ILLNESS: This is a 21-year-old female who was feeling numbness on the right eye yesterday while she was driving. At that time, she felt like her vision was slightly blurry. She did not have any pain. It lasted a few minutes but later on the numbness resolved. Today she does not have any numbness and no weakness of the face. The vision is normal but sometimes it feels blurry. No slurred speech. No facial asymmetry. No tingling, numbness, weakness anywhere in the body. No headache. No nausea or vomiting or dizziness. ALLERGIES: NKA. MEDICATIONS: None. PHYSICAL EXAMINATION: On exam, she is awake, alert, not in distress, no dyspnea. Temperature 98.7, blood pressure 126/84, pulse 80, respirations 18, pulse oximetry 100% on room air. Pain score 0 out of 10. HEENT: Examination revealed cranial nerves were normal. She has no facial asymmetry. Touch, sensation of the entire face was normal. She was able to close her eyes tightly very well. No weakness of the eyelids. Frowning of the forehead was normal. No drooping of the lips. Motor function 5/5. Sensation intact. Examination of both eyes did not see any abnormal finding. The conjunctivae were normal. No watering of the eye and corneal appearance was normal. There is no periorbital redness or tenderness. No eyeball tenderness. Palpation of the eyeballs on both sides appear to have same consistency. There appears to be no clinical indication that she has any increased ocular pressure. Clear to auscultate. Heart: Regular rate and rhythm. Neurologically grossly intact. Her vision was 20/20 in the left eye, 20/25 in the right eye and 20/30 for binocular vision. ASSESSMENT: Dry right eye. PLAN: Clinical findings were discussed with the patient in detail. I explained to her that my exam is quite normal today. Her vital signs were also normal. I do not see any abnormal finding. I actually tried to do an ophthalmoscopy, but because of the constriction of pupil could not see much. For whatever I could see, I do not see any abnormal posterior segment of the eye. I want her to use [id number] lubricating drop into her eye, and I want her to see an eye doctor for further evaluation and care and have a thorough examination of her eye as soon as possible. If at any time she thinks she is having any abnormal symptoms about her eye or neurological abnormality, she must go to the hospital for further evaluation and care. The patient understood and agreed. Her questions were answered to her satisfaction. Sheba Zhang MD /[id number] [facility] File#: [id number] END OF DOCUMENT / CHANGE LOG FOLLOWS Last Edited By Elec. Signed By Sheba Zhang MD #PAWPR Sheba Zhang MD #PAWPR on 04/04/2021 18:00 ET on 04/04/2021 18:00 ET Revision Number - 2 ^^^ Verified/Reviewed by 04/04/21 Tam[facility] PATIENT NAME: DRE CHILDRESS [facility] Dr. Salcido MEDICAL REC #: [id number] [place] [address] [facility] REPORT STATCARE PHYSICIAN documented in this encounter [facility] documented as of this encounter (statuses as of 12/27/2021) [address]19-2015 History of Past illness Narrative* Problem Noted Date Resolved Date Patellar subluxation 07/16/2015 03/30/2017 documented as of this encounter (statuses as of 03/04/2022) [address]19-2015 History of Past illness Narrative* Problem Noted Date Resolved Date Patellar subluxation 07/16/2015 03/30/2017 documented as of this encounter (statuses as of 01/02/2023) [address]19-2015 History of Past illness Narrative* Problem Noted Date Resolved Date Patellar subluxation 07/16/2015 03/30/2017 documented as of this encounter (statuses as of 01/10/2023) [address]19-2015 History of Past illness Narrative* Problem Noted Date Resolved Date Patellar subluxation 07/16/2015 03/30/2017 documented as of this encounter (statuses as of 01/10/2023) [address]19-2015 History of Past illness Narrative* Problem Noted Date Resolved Date Patellar subluxation 07/16/2015 03/30/2017 documented as of this encounter (statuses as of 01/15/2023) [address]19[address]2015 History of Past illness Narrative* Problem Noted Date Resolved Date Patellar subluxation 07/16/2015 03/30/2017 documented as of this encounter (statuses as of 01/27/2023) [address]2015 History of Past illness Narrative* Problem Noted Date Resolved Date Patellar subluxation 07/16/2015 03/30/2017 documented as of this encounter (statuses as of 02/24/2023) [address]2015 History of Past illness Narrative* Problem Noted Date Diagnosed Date Resolved Date Patellar subluxation 07/16/2015 017 documented as of this encounter (statuses as of 08/11/2023) [facility] History of Past illness Narrative* Problem Noted Date Diagnosed Date Resolved Date Patellar subluxation 07/16/2015 017 documented as of this encounter (statuses as of 08/13/2023) [facility] + Plan note No data available for this section [facility] Evaluation note* Diagnosis Acute left ankle pain- Primary documented in this encounter [facility] note* Diagnosis Torticollis- Primary Torticollis, unspecified documented in this encounter [facility] note* Diagnosis Migraine without aura and without status migrainosus, not intractable- Primary Migraine without aura, without mention of intractable migraine without mention of status migrainosus [facility] No data available for this section [facility] Instructions* Instruction Text Take antibiotics as directed Salt water gargles, lozenges as neededTylenol or Motrin as neededFollow up with new or worsening signs or symptoms [facility] Progress note No data available for this section [facility] Summary Purpose Family History No Family History Records FoundNo Family History Records FoundNo Family History Records FoundNo Family History Records Found Advance Directives No Advanced Directives Records FoundNo Advanced Directives Records FoundNo Advanced Directives Records FoundNo Advanced Directives Records Found Reason for Referral Specialty Diagnoses / Procedures Referred By Contac t Referred To Contact Podiatry Diagnoses Acute left ankle pain Procedures CONSULT TO PODIATRY OFFICE/OUTPATIENT [facility] 60-74 MINUTES Nany Torres, PA-C [address] [place] [address] Referral ID Status Reason Start Date Expiration Date Visits Requested Visits Authorized [id number] Authorized PCP Requested Referral 01/09/2023 01/09/2024 1 1 Specialty Diagnoses / Procedures Referred By Cecily t Referred To Contact XR IMAGING Diagnoses Acute left ankle pain Procedures XR ANKLE GENERAL 3V AP/LAT/OBL LEFT RADEX ANKLE COMPLETE MINIMUM 3 VIEWS Nany Torres PA-C [address] [place] [address] Xr Imaging Referral ID Status Reason Start Date Expiration Date V isits Requested Visits Authorized [id number] Closed Auto-Generate d Referral 01/09/2023 02/08/2024 1 1 Specialty Diagnoses / Procedures Referred By Contac t Referred To Contact XR IMAGING Diagnoses Acute left ankle pain Procedures XR FOOT GENERAL 3V AP/LAT/OBL LEFT RADEX FOOT COMPLETE MINIMUM 3 VIEWS [place] Nany Mendez PA-C [address] [place] [address] Xr Imaging Referral ID Status Reason Start Date Expiration Date V isits Requested Visits Authorized [id number] Closed Auto-Generate d Referral 01/09/2023 02/08/2024 1 1 Additional Source Comments Source Comments (unrecognize d section and content) In the event this informatio n is protected by the Federal Confidentiality of Alcohol and Drug Abuse Patient Records regulations: The Federal rules restrict any use of the information to criminally investigate or prosecute any alcohol or drug abuse patient.[facility] the event this information is protected by the Federal Confidentiality of Alcohol and Drug Abuse Patient Records regulations: The Federal rules restrict any use of the information to criminally investigate or prosecute any alcohol or drug abuse patient.[facility] the event this information is protected by the Federal Confidentiality of Alcohol and Drug Abuse Patient Records regulations: The Federal rules restrict any use of the information to criminally investigate or prosecute any alcohol or drug abuse patient.[facility] the event this information is protected by the Federal Confidentiality of Alcohol and Drug Abuse Patient Records regulations: The Federal rules restrict any use of the information to criminally investigate or prosecute any alcohol or drug abuse patient.[facility] the event this information is protected by the Federal Confidentiality of Alcohol and Drug Abuse Patient Records regulations: The Federal rules restrict any use of the information to criminally investigate or prosecute any alcohol or drug abuse patient.[facility] the event this information is protected by the Federal Confidentiality of Alcohol and Drug Abuse Patient Records regulations: The Federal rules restrict any use of the information to criminally investigate or prosecute any alcohol or drug abuse patient.[facility] the event this information is protected by the Federal Confidentiality of Alcohol and Drug Abuse Patient Records regulations: The Federal rules restrict any use of the information to criminally investigate or prosecute any alcohol or drug abuse patient.[facility] the event this information is protected by the Federal Confidentiality of Alcohol and Drug Abuse Patient Records regulations: The Federal rules restrict any use of the information to criminally investigate or prosecute any alcohol or drug abuse patient.[facility] the event this information is protected by the Federal Confidentiality of Alcohol and Drug Abuse Patient Records regulations: The Federal rules restrict any use of the information to criminally investigate or prosecute any alcohol or drug abuse patient.[facility] the event this information is protected by the Federal Confidentiality of Alcohol and Drug Abuse Patient Records regulations: The Federal rules restrict any use of the information to criminally investigate or prosecute any alcohol or drug abuse patient.[facility] Hospital[facility] the event this information is protected by the Federal Confidentiality of Alcohol and Drug Abuse Patient Records regulations: The Federal rules restrict any use of the information to criminally investigate or prosecute any alcohol or drug abuse patient.[facility] Care Teams (unrecognized sec tion and content) Coin Machine Supervisor Relationship Specialty Start Date End Date Maru Carmichael MD [address] [place] [address] PCP - General Pediatrics 09/03/12 Coin Machine Supervisor Relationship Specialty Start Date End Date Shira Meyer, [employer] DIRECTION SPECIALIST.COMPUTER PROGRAMMER PCP - General Internal Medicine 05/27/22 INFORMATION SOURCE (unrecogn ized section and content) DATE CREATED AUTHOR AUTHOR'S ORGANIZ ATION 12/13/2022 [facility] ([place]) DATE CREATED AUTHOR AUTHOR'S ORGANIZ ATION 08/11/2023 [facility] DATE CREATED AUTHOR AUTHOR'S ORGANIZ ATION 08/15/2023 [facility] Reason for Visit (unrecogniz ed section and content) Reason Comments Pain (foot) L foot pain x2 days, no known cause or injury Reason Comments Allergic Reaction Reason Comments Neck Pain migrating into shoul fernando, right side x 3 hours Reason Comments Migraine Reason Comments New Patient Evaluation FOR RECORDS PERTAINING TO PATIENTS WHO ARE OR HAVE BEEN ENROLLED IN A CHEMICAL DEPENDENCY/SUBSTANCEABUSE PROGRAM, SOME INFORMATION MAY BE OMITTED. This clinical summary was aggregated from multiple sources. Caution should be exercised in using it in the provision of clinical care. This summary normalizes information from multiple sources, and as a consequence, information in this document may materially change the coding, format and clinical context of patient data. In addition, data may be omitted in some cases. CLINICAL DECISIONS SHOULD BE BASED ON THE PRIMARY CLINICAL RECORDS. [facility]. provides no warranty or guarantee of the accuracy or completeness of information in this document.
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
[2023-09-24] MEDS: Acetaminophen 500 MG Tablet 1000 MG PO (00:02)
== END 2023-09-24 00:43 | disposition home or self-care (01) ==
PROVIDERS: Emergency Provider Student in an Organized Health Care Education/Training Program; Visit Provider Student in an Organized Health Care Education/Training Program
DX: S60.212A Contusion of left wrist, initial encounter (principal); F17.210 Nicotine dependence, cigarettes, uncomplicated; Y00.XXXA Assault by blunt object, initial encounter
CPT/HCPCS: 73110; 99283